=== PATIENT | male | born 1995 | race American Indian/Alaskan Native ===

== ENCOUNTER 2020-11-04 22:10 | Emergency (ER) | payer OTHER ==
[2020-11-04 23:43] VITALS: BP 135/84
--- NOTE | 2020-11-04 23:52 | Emergency Department Report ---
ED General Adult HPI - General Stated complaint: PAIN THOUGH OUT BODY PUI?: No Source: patient Mode of arrival: Ambulatory - History of Present Illness Initial comments: Patient is a 25-year-old -[place] male with past medical history of asthma who presents to the ED with complaint of acute onset persistent left mandibular premolar molar toothache with swollen gums and pain for the last 2 weeks worse in the last 2 days. Patient states that he has not been able to eat anything because of worsening pain in his left lower jaw. Patient states that he has been taking [id number] pain medications with no relief. Patient denies dizziness, syncope, sore throat, nausea and vomiting, chest pain, shortness of breath, fever, chills, headache, neck pain, abdominal pain, cough or traumatic injury. MD Complaint: Gingival pain and swelling -: Sudden, week(s) (2) Location: mouth Radiation: non-radiation Severity scale (0 -10): 5 Quality: aching, sharp Consistency: constant Improves with: none Worsens with: none Associated Symptoms: denies other symptoms. denies: confusion, chest pain, cough, diaphoresis, fever/chills, headaches, loss of appetite, malaise, nausea/vomiting, rash, seizure, shortness of breath, syncope, weakness Treatments Prior to Arrival: none - Related Data Previous Rx's Medication Instructions Recorded Last Taken Type Famotidine [Pepcid] 40 mg PO QHS #30 tablet 01/09/14 Unknown Rx Amoxicillin [Trimox CAP] 500 mg PO Q8H #30 capsule 11/04/20 Unknown Rx Ibuprofen [Motrin] 600 mg PO Q8H PRN #30 tablet 11/04/20 Unknown Rx Lidocaine Viscous 2% 10 ml PO Q6H PRN #120 ml 11/04/20 Unknown Rx Allergies Allergy/AdvReac Type Severity Reaction Status Date / Time No Known Allergies Allergy Verified 01/09/14 20:24 ED Review of Systems ROS: Stated complaint: PAIN THOUGH OUT BODY Other details as noted in HPI Constitutional: denies: chills, fever Eyes: denies: eye pain, eye discharge, vision change ENT: throat pain, other (ulcerated left mandibular gingival pain and swelling). denies: ear pain Respiratory: denies: cough, shortness of breath, wheezing Cardiovascular: denies: chest pain, palpitations Endocrine: no symptoms reported Gastrointestinal: denies: abdominal pain, nausea, vomiting, diarrhea Genitourinary: denies: urgency, dysuria Musculoskeletal: denies: back pain, joint swelling, arthralgia Skin: denies: rash, lesions Neurological: denies: headache, weakness, paresthesias Psychiatric: denies: anxiety, depression Hematological/Lymphatic: denies: easy bleeding, easy bruising ED Past Medical Hx - Past Medical History Hx Asthma: Yes (states he is healed) - Social History Smoking Status: Never Smoker Substance Use Type: None - Medications Home Medications: Home Medications Medication Instructions Recorded Confirmed Last Taken Type Famotidine [Pepcid] 40 mg PO QHS #30 tablet 01/09/14 Unknown Rx Amoxicillin [Trimox CAP] 500 mg PO Q8H #30 capsule 11/04/20 Unknown Rx Ibuprofen [Motrin] 600 mg PO Q8H PRN #30 tablet 11/04/20 Unknown Rx Lidocaine Viscous 2% 10 ml PO Q6H PRN #120 ml 11/04/20 Unknown Rx ED Physical Exam - General General appearance: alert, in no apparent distress - Head Head exam: Present: atraumatic, normocephalic, normal inspection - Eye Eye exam: Present: normal appearance, PERRL, EOMI Pupils: Present: normal accommodation - ENT ENT exam: Present: mucous membranes moist, TM's normal bilaterally, normal external ear exam, other (Ulcerated erythematous left mandibular gingiva with localized tenderness) - Neck Neck exam: Present: normal inspection, full ROM, lymphadenopathy - Respiratory Respiratory exam: Present: normal lung sounds bilaterally. Absent: respiratory distress, wheezes, rales, rhonchi, chest wall tenderness, accessory muscle use, decreased breath sounds, prolonged expiratory - Cardiovascular Cardiovascular Exam: Present: regular rate, normal rhythm, normal heart sounds. Absent: systolic murmur, diastolic murmur, rubs, gallop - GI/Abdominal GI/Abdominal exam: Present: soft, normal bowel sounds. Absent: distended, tenderness, guarding, hyperactive bowel sounds, hypoactive bowel sounds, organomegaly - Extremities Exam Extremities exam: Present: normal inspection, full ROM, normal capillary refill - Back Exam Back exam: Present: normal inspection, full ROM. Absent: tenderness, CVA tenderness (R), CVA tenderness (L), muscle spasm, paraspinal tenderness, vertebral tenderness - Neurological Exam Neurological exam: Present: alert, oriented X3, CN II-XII intact, normal gait, reflexes normal - Psychiatric Psychiatric exam: Present: normal affect, normal mood - Skin Skin exam: Present: warm, dry, intact, normal color. Absent: rash ED Course Vital Signs 11/04/20 11/05/20 23:34 00:50 Temperature 98.4 F Pulse Rate 75 Respiratory 18 20 Rate Blood Pressure 135/84 O2 Sat by Pulse 99 98 Oximetry ED Medical Decision Making - Medical Decision Making This is a 25-year-old -[place] male with past medical history of asthma who presents to the ED with complaint of acute onset persistent left mandibular premolar molar toothache with swollen gums and pain for the last 2 weeks worse in the last 2 days. Patient states that he has not been able to eat anything because of worsening pain in his left lower jaw. Patient states that he has been taking [id number] pain medications with no relief. In the ED, patient is alert and oriented x3 and is not in distress. Patient is hemo dynamically stable. Patient was discharged home on pain medications and antibiotics and was advised to follow-up with his dentist or primary care physician in 7 to 10 days for reevaluation or return to the ED immediately if symptoms get worse. - Differential Diagnosis gingivitis; oral ulcers; pharyngitis; tonsillitis Critical care attestation.: If time is entered above; I have spent that time in minutes in the direct care of this critically ill patient, excluding procedure time. ED Disposition Clinical Impression: Acute gingival inflammation, Dental caries Disposition: - TO HOME OR SELFCARE Is pt being admited?: No Does the pt Need Aspirin: No Condition: Stable Additional Instructions: Take medications with food, drink plenty of fluids and follow-up with your den tist or primary care physician in 7 to 10 days for reevaluation. Return to the ED immediately if symptoms get worse. Prescriptions: Lidocaine Viscous 2% 10 ml PO Q6H PRN #120 ml PRN Reason: Mouth Pain Ibuprofen [Motrin] 600 mg PO Q8H PRN #30 tablet PRN Reason: Pain Amoxicillin [Trimox CAP] 500 mg PO Q8H #30 capsule Referrals: [facility] [Outside] - 3-5 Days [facility] [Outside] - 3-5 Days Time of Disposition: 23:52 Print Language: BAHAMIAN
== END 2020-11-05 00:35 | disposition home or self-care (01) ==
LOC: ED 22:10
DX: K05.00 Acute gingivitis, plaque induced (principal); K02.9 Dental caries, unspecified; J45.909 Unspecified asthma, uncomplicated; Z79.1 Long term (current) use of non-steroidal anti-inflammatories (NSAID); Z79.2 Long term (current) use of antibiotics; Z79.899 Other long term (current) drug therapy
CPT/HCPCS: 99282